=== PATIENT | female | born 1955 | race Caucasian/White ===

== ENCOUNTER 2022-07-01 10:11 | Emergency (ER) | payer BC ==
[2022-07-01 10:25] VITALS: RESP 18; TEMP 97.8; BMI 26.6
[2022-07-01] MEDS ORDERED: DIPHTH,PERTUSS(ACELL),TET 0.5 ML DISP.SYRIN IM ONE ×2 (11:00→11:10)
[2022-07-01] MEDS ORDERED: ACETAMINOPHEN 500 MG TABLET (FP) PO ONE (11:15)
[2022-07-01] MEDS ORDERED: ACETAMINOPHEN 325 MG TABLET (FP) ONE (11:22)
[2022-07-01] MEDS ORDERED: LIDOCAINE HCL 2% (50ML VIAL) SQ ONE (13:29)
[2022-07-01] MEDS ORDERED: LIDOCAINE HCL 2% (20ML MULTI-DOSE VIAL) ONE (13:32)
[2022-07-01] MEDS ORDERED: methylPREDNISolone NA SUCC 125 MG/2 ML VIAL ONE (13:36)
[2022-07-01 13:48] VITALS: BP 135/77; PULSE 65
[2022-07-01] MEDS ORDERED: BACITRACIN 0.9 GM PACKET ONE (14:03)
[2022-07-01] MEDS ORDERED: BACITRACIN 15 GM TUBE TOPICAL OINTMENT ONE (14:05)
== END 2022-07-01 14:31 | disposition home or self-care (01) ==
LOC: JER 10:11
PROC: 0HQ0XZZ Repair Scalp Skin, External Approach (ICD-10-PCS; principal; 2022-07-01)
PROC: 3E0234Z Introduction of Serum, Toxoid and Vaccine into Muscle, Percutaneous Approach (ICD-10-PCS; 2022-07-01)
DX: S01.01XA Laceration without foreign body of scalp, initial encounter (principal); W07.XXXA Fall from chair, initial encounter
CPT/HCPCS: 70450-TC; 72125-TC; 90715; 99284-25

== ENCOUNTER 2022-07-09 10:06 | Emergency (ER) | payer BC ==
[2022-07-09 10:14] VITALS: BP 100/66; PULSE 71; RESP 18; TEMP 97.8; BMI 26.6
== END 2022-07-09 12:05 | disposition home or self-care (01) ==
LOC: JERFT 10:06
DX: S01.01XA Laceration without foreign body of scalp, initial encounter (principal); Y99.9 Unspecified external cause status; Z48.02 Encounter for removal of sutures
CPT/HCPCS: 99281-25